=== PATIENT | female | born 1955 | race Caucasian/White ===

== ENCOUNTER 2018-09-08 05:46 | Inpatient (IN) | payer BC ==
[2018-09-08] MEDS ORDERED: ROCURONIUM 50 MG INJ ×2 (07:30→08:38)
[2018-09-08] MEDS ORDERED: DESFLURANE 15 MIN (07:30)
[2018-09-08] MEDS ORDERED: PROPOFOL 20 ML (07:30)
[2018-09-08] MEDS ORDERED: CLINDAMYCIN 900 MG/D5W (PMX) 50 ML IVPB (07:30)
[2018-09-08] MEDS ORDERED: MIDAZOLAM 1 MG/ML 2 ML INJ (07:31)
[2018-09-08] MEDS ORDERED: ONDANSETRON 4 MG INJ (07:31)
[2018-09-08] MEDS ORDERED: METOCLOPRAMIDE 10 MG INJ (07:31)
[2018-09-08] MEDS ORDERED: EPHEDrine 25 MG/5 ML SYG ×2 (08:05→14:33)
[2018-09-08] MEDS ORDERED: HYDROmorphONE 2 MG/ML SYG (08:43)
[2018-09-08] MEDS ORDERED: hydrALAzine 20 MG INJ IV (10:30)
[2018-09-08] MEDS ORDERED: ALBUTEROL 0.083% (NEB) 2.5 MG/3 ML AMP HHN (10:30)
[2018-09-08] MEDS ORDERED: HYDROmorphONE 1 MG/5 ML IV SYRINGE IV ×2 (10:30→15:40)
[2018-09-08] MEDS ORDERED: LABETALOL HCL 20MG INJ IV (10:30)
[2018-09-08] MEDS ORDERED: FENTAnyl 50 MCG/ML VIAL IV ×2 (10:30)
[2018-09-08] MEDS: GELATIN SIZE 100 SPONGE (14:51)
[2018-09-08] MEDS: THROMBIN 5000 UNIT (RECOTHROM) VIAL (14:51)
[2018-09-08] MEDS: BUPIVACAINE 0.5%/EPI (SDV) 30 ML INJ (14:51)
[2018-09-08] MEDS: POLYMYXIN/BACITRACIN 1L IRRIG (14:51)
[2018-09-08] MEDS ORDERED: AL HYDROX/MG HYDROX/SIMETH 30 ML CUP PO (15:30)
[2018-09-08] MEDS ORDERED: PROCHLORPERAZINE 10 MG TAB PO (15:30)
[2018-09-08] MEDS ORDERED: VANCOMYCIN 1 GM (PMX) 250 ML IVPB (15:30)
[2018-09-08] MEDS ORDERED: NACL 0.9% 3 ML SYG IV (15:30)
[2018-09-08] MEDS ORDERED: NALOXONE (0.4 MG/ML) INJ IV (15:30)
[2018-09-08] MEDS: HYDROmorphONE 0.2 MG/ML PCA IV (15:49)
[2018-09-08] MEDS: HYDROmorphONE 1 MG/5 ML IV SYRINGE IV ×2 (15:51→15:58)
[2018-09-08] MEDS: MEPERIDINE 25 MG INJ IV (15:58)
[2018-09-08] MEDS: ONDANSETRON 4 MG INJ IV (15:58)
[2018-09-08] MEDS: DIPHENHYDRAMINE 50 MG INJ IV (15:59)
[2018-09-08 16:22] LABS: ADD MAN DIFF? NO
[2018-09-08 16:24] LABS: WHITE BLOOD COUNT 16.8 10^3/ul (4.8-10.8)
[2018-09-08 16:24] LABS: BASOPHILS % 0.2 % (0.0-2.0); HEMATOCRIT 32.9 % (37.0-47.0); HEMOGLOBIN 10.9 g/dl (12.0-16.0); LYMPHOCYTES # 0.6 10^3/ul (0.8-2.9); LYMPHOCYTES % 3.8 % (15.0-51.0); MEAN CORPUSCULAR HEMOGLOBIN 31.7 pg (29.0-33.0); MEAN CORPUSCULAR HGB CONC 33.1 g/dl (32.0-37.0); MEAN CORPUSCULAR VOLUME 95.6 fl (82.0-101.0); MEAN PLATELET VOLUME 9.3 fl (7.4-10.4); MONOCYTE # 0.6 10^3/ul (0.3-0.9); MONOCYTES % 3.3 % (0.0-11.0); NEUTROPHIL # 15.5 10^3/ul (1.6-7.5); NEUTROPHILS % 91.8 % (39.0-77.0); PLATELET COUNT 283 10^3/UL (140-415); RED BLOOD COUNT 3.44 10^6/ul (4.20-5.40); RED CELL DISTRIBUTION WIDTH 12.6 % (11.5-14.5)
[2018-09-08 16:26] LABS: HOLD TRANSMISSIONS 1
[2018-09-08 16:28] LABS: ADD UMIC YES; UR ASCORBIC ACID NEGATIVE (NEGATIVE); UR BILIRUBIN (Dip) NEGATIVE (NEGATIVE); UR BLOOD (Dip) 3+ mg/dL (NEGATIVE); UR CLARITY CLEAR (CLEAR); UR COLOR YELLOW (YELLOW); UR GLUCOSE (Dip) NEGATIVE (NEGATIVE); UR KETONES (Dip) NEGATIVE (NEGATIVE); UR LEUKOCYTE ESTERASE (Dip) NEGATIVE Leu/ul (NEGATIVE); UR MUCUS FEW /HPF (NONE SEEN); UR NITRITE (Dip) NEGATIVE (NEGATIVE); UR RBC 50 /HPF (0-5); UR SPECIFIC GRAVITY (Dip) 1.016 (1.003-1.030); UR TOTAL PROTEIN (Dip) 1+ mg/dl (NEGATIVE); UR UROBILINOGEN (Dip) NEGATIVE (NEGATIVE); UR WBC 2 /HPF (0-5)
[2018-09-08] MEDS: FENTAnyl 50 MCG/ML VIAL IV (16:56)
[2018-09-08] MEDS ORDERED: ALPRAZOLAM 0.25 MG TAB PO (17:00)
[2018-09-08] MEDS: SOD CHLORIDE 0.9% 1,000 ML IV (17:41)
[2018-09-08] MEDS: VANCOMYCIN 1 GM (PMX) 250 ML IVPB ×2 (17:56→18:30)
[2018-09-08] MEDS: BUPROPION 100 MG TAB PO (20:58)
[2018-09-09 05:07] LABS: HEMATOCRIT 30.9 % (37.0-47.0); HEMOGLOBIN 9.8 g/dl (12.0-16.0)
[2018-09-09 05:26] LABS: ANION GAP 3 (5-13); BLOOD UREA NITROGEN 12 mg/dl (7-20); CALCIUM 8.4 mg/dl (8.4-10.2); CARBON DIOXIDE 28 mmol/L (21-31); CHLORIDE 107 mmol/L (97-110); CREATININE 0.55 mg/dl (0.44-1.00); Estimated GFR > 60 mL/min (>60); GLUCOSE 116 mg/dl (70-220); POTASSIUM 4.6 mmol/L (3.5-5.1); SODIUM 138 mmol/L (135-144)
[2018-09-09] MEDS: SOD CHLORIDE 0.9% 1,000 ML IV ×2 (05:30→06:34)
[2018-09-09] MEDS: VANCOMYCIN 1 GM (PMX) 250 ML IVPB (06:32)
[2018-09-09] MEDS: DOCUSATE SODIUM 100 MG CAP PO ×2 (08:38→20:48)
[2018-09-09] MEDS: BUPROPION 100 MG TAB PO ×2 (08:38→20:48)
[2018-09-09] MEDS: LORATADINE 10 MG TAB PO (08:39)
[2018-09-09] MEDS: SERTRALINE 50 MG TAB PO (08:39)
[2018-09-09] MEDS: HYDROmorphONE 0.2 MG/ML PCA IV (10:38)
[2018-09-09] MEDS: HYDROCODONE/APAP (5/325) TAB PO ×3 (13:02→21:32)
[2018-09-09] MEDS ORDERED: HYDROmorphONE 0.5 MG/0.5 ML SYG IV (13:30)
[2018-09-10] MEDS: HYDROCODONE/APAP (5/325) TAB PO ×5 (01:31→22:06)
[2018-09-10 05:00] LABS: ADD MAN DIFF? NO
[2018-09-10 05:07] LABS: WHITE BLOOD COUNT 10.1 10^3/ul (4.8-10.8)
[2018-09-10 05:07] LABS: BASOPHILS % 0.3 % (0.0-2.0); EOSINOPHILS % 0.2 % (0.0-7.0); HEMATOCRIT 31.3 % (37.0-47.0); HEMOGLOBIN 10.3 g/dl (12.0-16.0); LYMPHOCYTES # 0.9 10^3/ul (0.8-2.9); LYMPHOCYTES % 9.1 % (15.0-51.0); MEAN CORPUSCULAR HEMOGLOBIN 31.7 pg (29.0-33.0); MEAN CORPUSCULAR HGB CONC 32.9 g/dl (32.0-37.0); MEAN CORPUSCULAR VOLUME 96.3 fl (82.0-101.0); MEAN PLATELET VOLUME 9.9 fl (7.4-10.4); MONOCYTE # 0.8 10^3/ul (0.3-0.9); MONOCYTES % 7.6 % (0.0-11.0); NEUTROPHIL # 8.3 10^3/ul (1.6-7.5); NEUTROPHILS % 82.1 % (39.0-77.0); PLATELET COUNT 280 10^3/UL (140-415); RED BLOOD COUNT 3.25 10^6/ul (4.20-5.40); RED CELL DISTRIBUTION WIDTH 12.6 % (11.5-14.5)
[2018-09-10] MEDS: ACETAMINOPHEN 325 MG TAB PO ×2 (05:12→21:09)
[2018-09-10 05:21] LABS: ANION GAP 5 (5-13); BLOOD UREA NITROGEN 8 mg/dl (7-20); CALCIUM 8.5 mg/dl (8.4-10.2); CARBON DIOXIDE 28 mmol/L (21-31); CHLORIDE 102 mmol/L (97-110); CREATININE 0.54 mg/dl (0.44-1.00); Estimated GFR > 60 mL/min (>60); GLUCOSE 129 mg/dl (70-220); MAGNESIUM 1.8 mg/dl (1.7-2.5); PHOSPHORUS 3.1 mg/dl (2.5-4.9); POTASSIUM 3.6 mmol/L (3.5-5.1); SODIUM 135 mmol/L (135-144)
[2018-09-10 05:27] LABS: IRON 10 ug/dl (35-150)
[2018-09-10 05:36] LABS: % IRON SATURATION 4 % SAT (22-52); TOTAL IRON BINDING CAPACITY 272 ug/dl (241-421)
[2018-09-10] MEDS: BUPROPION 100 MG TAB PO ×2 (08:21→21:08)
[2018-09-10] MEDS: LORATADINE 10 MG TAB PO (08:21)
[2018-09-10] MEDS: SERTRALINE 50 MG TAB PO (08:21)
[2018-09-10] MEDS: DOCUSATE SODIUM 100 MG CAP PO ×3 (08:22→21:09)
[2018-09-10] MEDS: ONDANSETRON 4 MG INJ IV (08:23)
[2018-09-10] MEDS: POTASSIUM CHLORIDE (SR) 10 MEQ TAB PO (09:29)
[2018-09-10] MEDS: FERROUS FUMARATE (SR) TAB PO ×2 (09:30→21:08)
[2018-09-10] MEDS: POLYETHYLENE GLYCOL 17 GM PACKET PO (09:31)
[2018-09-11] MEDS: ACETAMINOPHEN 325 MG TAB PO ×3 (01:38→11:38)
[2018-09-11] MEDS: HYDROCODONE/APAP (5/325) TAB PO ×3 (02:28→13:31)
[2018-09-11] MEDS: FERROUS FUMARATE (SR) TAB PO (09:24)
[2018-09-11] MEDS: LORATADINE 10 MG TAB PO (09:25)
[2018-09-11] MEDS: POLYETHYLENE GLYCOL 17 GM PACKET PO (09:25)
[2018-09-11] MEDS: DOCUSATE SODIUM 100 MG CAP PO (09:25)
[2018-09-11] MEDS: BUPROPION 100 MG TAB PO (09:25)
[2018-09-11] MEDS: SERTRALINE 50 MG TAB PO (09:25)
== END 2018-09-11 14:40 | disposition home or self-care (01) | DRG 455 ==
LOC: REC 05:46 → MS1 17:36
PROC: 0SG10K1 Fusion of 2 or more Lumbar Vertebral Joints with Nonautologous Tissue Substitute, Posterior Approach, Posterior Column, Open Approach (ICD-10-PCS; principal; 2018-09-08 07:30)
PROC: 0SG10AJ Fusion of 2 or more Lumbar Vertebral Joints with Interbody Fusion Device, Posterior Approach, Anterior Column, Open Approach (ICD-10-PCS; 2018-09-08 07:30)
PROC: 0SB20ZZ Excision of Lumbar Vertebral Disc, Open Approach (ICD-10-PCS; 2018-09-08 07:30)
PROC: 01NB0ZZ Release Lumbar Nerve, Open Approach (ICD-10-PCS; 2018-09-08 07:30)
PROC: 4A11X4G Monitoring of Peripheral Nervous Electrical Activity, Intraoperative, External Approach (ICD-10-PCS; 2018-09-08 07:30)
DX: M43.16 Spondylolisthesis, lumbar region (principal); M51.36 Other intervertebral disc degeneration, lumbar region; M48.062 Spinal stenosis, lumbar region with neurogenic claudication; F32.9 Major depressive disorder, single episode, unspecified; F41.9 Anxiety disorder, unspecified; D50.9 Iron deficiency anemia, unspecified; M51.16 Intervertebral disc disorders with radiculopathy, lumbar region; E66.3 Overweight; Z68.31 Body mass index [BMI] 31.0-31.9, adult
CPT/HCPCS: 72110; 80048; 81001; 82728; 83540; 83735; 84100; 85014; 85018; 85025; 86850; 86900; 86901; 87086; 88304; 97116; 97162; 97530